=== PATIENT | female | born 1945 | race Caucasian/White ===

== ENCOUNTER 2021-04-18 16:48 | Emergency (ER) | payer MEDICARE ==
[2021-04-18] MEDS ORDERED: Ketorolac Tromethamine 30 MG/ML VIAL ONE (17:24)
[2021-04-18 17:49] LABS: Bilirubin Negative (Negative); Blood, Urine Negative (Negative); Glucose, Urine (Dipstick) Negative (Negative); Ketone, Urine Negative (Negative); Leukocyte Trace (Negative); Nitrite Negative (Negative); Protein, Urine (Dipstick) Negative (Neg-Trace); Specific Gravity, Urine 1.025 (1.005-1.030); Urobilinogen 0.2 mg/dL (Less than 2); pH, Urine 5.5 (5.0-9.0)
[2021-04-18 17:50] LABS: Clarity Hazy (Clear)
[2021-04-18 17:56] LABS: Bacteria/HPF Rare-Few HPF (None Seen); Mucous/LPF 2+ LPF (<2+); RBC/HPF None Seen HPF (0-3); WBC/HPF 21-50 HPF (0-3)
== END 2021-04-18 18:05 | disposition home or self-care (01) ==
LOC: MADERS 16:48
DX: S33.5XXA Sprain of ligaments of lumbar spine, initial encounter (principal); K21.9 Gastro-esophageal reflux disease without esophagitis; I25.10 Atherosclerotic heart disease of native coronary artery without angina pectoris; I10 Essential (primary) hypertension; F17.210 Nicotine dependence, cigarettes, uncomplicated; X50.9XXA Other and unspecified overexertion or strenuous movements or postures, initial encounter
CPT/HCPCS: 74176; 81003; 81015; 96372; J1885

== ENCOUNTER 2021-05-03 14:54 | Inpatient (IN) | payer MEDICARE ==
[~2021-05-03 14:54] MED LIST: Estradiol [Estrace 0.01% Vaginal Cream] 42.5 GM Tube VAG SCH
[2021-05-03 16:04] LABS: #Basophils 0.1 thou/uL (0.0-0.2); #Lymphocytes 2.5 thou/uL (1.20-3.40); #Monocytes 1.8 thou/uL (0.11-0.59); #Neutrophils 10.5 thou/uL (1.40-6.50); %Basophils 0.5 % (0.0-1.0); %Eosinophils 0.3 % (0.0-10.0); %Lymphocytes 16.9 % (21.0-51.0); %Monocytes 12.1 % (0.0-10.0); %Neutrophils 70.2 % (42.0-75.0); Mean Corpuscular HGB CONC 32.1 g/dL (32.0-36.0); Mean Corpuscular Hemoglobin 30.5 pg (27.0-31.0); Mean Corpuscular Volume 95.1 fL (78.0-98.0); Platelet Count 319 thou/uL (130-400); RBC Distribution Width 12.8 % (11.5-14.5); Red Blood Cell (RBC) Count 4.25 mill/uL (4.20-5.40); White Blood Cell (WBC) Count 14.9 thou/uL (4.8-10.8)
[2021-05-03] MEDS ORDERED: Azithromycin 250 MG TAB ONE (16:13)
[2021-05-03] MEDS ORDERED: cefTRIAXone\\ROCEPHIN 2 GM VIAL ONE (16:17)
[2021-05-03] MEDS ORDERED: Aspirin Chewable 81 MG TAB ONE (16:17)
[2021-05-03] MEDS ORDERED: Sodium Chloride 0.9% 100 ML ONE (16:17)
[2021-05-03] MEDS ORDERED: Sodium Chloride 0.9% 2,000 ML ONE (16:17)
[2021-05-03 16:22] LABS: ALT (SGPT) 34 U/L (8-55); AST (SGOT) 25 U/L (5-34); Albumin 3.9 g/dL (3.4-4.8); Alkaline Phosphatase 80 U/L (40-110); Anion Gap 14 mmol/L (10-20); BUN (Urea Nitrogen) 15 mg/dL (9.8-20.1); Bilirubin, Total 1.8 mg/dL (0.2-1.2); Calc. Creatinine Clearance 0 mL/min (70-130); Calcium 9.3 mg/dL (7.8-10.44); Carbon Dioxide 26 mmol/L (23-31); Chloride 103 mmol/L (98-107); Globulin 3.7 g/dL (2.4-3.5); Glucose 138 mg/dL (83-110); Potassium 3.4 mmol/L (3.5-5.1); Protein, Total 7.6 g/dL (5.8-8.1); Sodium 140 mmol/L (136-145)
[2021-05-03] MEDS ORDERED: Morphine 4 MG/ML VIAL ONE (16:57)
[2021-05-03 16:59] LABS: Bilirubin Negative (Negative); Blood, Urine Trace (Negative); Glucose, Urine (Dipstick) Negative (Negative); Ketone, Urine Trace mg/dL (Negative); Leukocyte Moderate (Negative); Nitrite Negative (Negative); Protein, Urine (Dipstick) 100 mg/dL (Neg-Trace); Specific Gravity, Urine 1.015 (1.005-1.030)
[2021-05-03 17:04] LABS: Clarity Cloudy (Clear); pH, Urine Greater/Equal 9.0 (5.0-9.0)
[2021-05-03 17:05] LABS: RBC/HPF 0-3 HPF (0-3); WBC/HPF Greater Than 50 HPF (0-3)
[2021-05-03 17:06] LABS: Bacteria/HPF 3+ HPF (None Seen); Mucous/LPF 2+ LPF (<2+)
[2021-05-03 18:16] LABS: SARS-CoV-2 NAA Rapid Test Not Detected (NotDetected)
[2021-05-03 19:49] VITALS: BMI 26.2
[2021-05-03] MEDS ORDERED: Ondansetron ODT 4 MG TAB PO PRN (21:56)
[2021-05-03] MEDS ORDERED: Non-Formulary Item 1 EACH (Ventolin Hfa Inhaler [Ventolin Hfa Inhaler] 60 PUFF Aer) INH PRN (21:58)
[2021-05-03] MEDS ORDERED: ESTRADIOL VAG SCH (22:00)
[2021-05-03] MEDS ORDERED: Atorvastatin Calcium 10 MG TAB PO SCH (22:45)
[2021-05-03] MEDS ORDERED: Ezetimibe 10 MG TAB PO SCH (22:45)
[2021-05-03] MEDS: Acetaminophen 325 MG TAB PO PRN (22:49)
[2021-05-03] MEDS: Melatonin 3 MG TAB PO PRN (23:07)
[2021-05-04 05:10] LABS: #Basophils 0.1 thou/uL (0.0-0.2); #Eosinphils 0.1 thou/uL (0.0-0.7); #Lymphocytes 1.9 thou/uL (1.20-3.40); #Monocytes 1.3 thou/uL (0.11-0.59); #Neutrophils 7.5 thou/uL (1.40-6.50); %Basophils 0.9 % (0.0-1.0); %Eosinophils 1.1 % (0.0-10.0); %Lymphocytes 17.7 % (21.0-51.0); %Monocytes 12.1 % (0.0-10.0); %Neutrophils 68.1 % (42.0-75.0); Hemoglobin 11.4 g/dL (12.0-16.0); Mean Corpuscular HGB CONC 32.2 g/dL (32.0-36.0); Mean Corpuscular Hemoglobin 30.4 pg (27.0-31.0); Mean Corpuscular Volume 94.2 fL (78.0-98.0); Mean Platelet Volume 6.2 fL (7.4-10.4); Platelet Count 256 thou/uL (130-400); RBC Distribution Width 12.5 % (11.5-14.5); Red Blood Cell (RBC) Count 3.76 mill/uL (4.20-5.40); White Blood Cell (WBC) Count 10.9 thou/uL (4.8-10.8)
[2021-05-04 05:25] LABS: Anion Gap 14 mmol/L (10-20); BUN (Urea Nitrogen) 10 mg/dL (9.8-20.1); Calc. Creatinine Clearance 88 mL/min (70-130); Calcium 8.3 mg/dL (7.8-10.44); Carbon Dioxide 21 mmol/L (23-31); Chloride 108 mmol/L (98-107); Glucose 100 mg/dL (83-110); Sodium 140 mmol/L (136-145)
[2021-05-04 05:33] LABS: Potassium 2.9 mmol/L (3.5-5.1)
[2021-05-04] MEDS ORDERED: Potassium Chloride 20 MEQ TAB PO SCH (06:15)
[2021-05-04] MEDS ORDERED: Non-Formulary Item 1 EACH (Cholecalciferol (Vitamin D3) [Vitamin D3] 1,000 UNIT Capsule) PO SCH (09:00)
[2021-05-04] MEDS: Amlodipine 5 MG TAB PO SCH (09:32)
[2021-05-04] MEDS: Ascorbic Acid 500 mg Chewable Tablet PO SCH (09:33)
[2021-05-04] MEDS: Cholecalciferol 1,000 UNITS (25 MCG) TAB PO SCH (09:33)
[2021-05-04] MEDS: Azithromycin 250 MG TAB PO SCH (09:33)
[2021-05-04] MEDS: Aspirin 81 mg Enteric Coated Tablet PO SCH (09:33)
[2021-05-04] MEDS: Albuterol 200 PUFF (6.7GM INHALER) INH PRN (10:18)
[2021-05-04] MEDS ORDERED: Saccharomyces boulardii 250 MG CAP PO SCH (13:00)
[2021-05-04] MEDS ORDERED: cefTRIAXone\\ROCEPHIN 2 GM in Sodium Chloride 0.9% 100 ML IVPB SCH (16:00)
[2021-05-04] MEDS ORDERED: ATORVASTATIN CALCIUM 20 MG PO SCH (21:00)
[2021-05-04] MEDS ORDERED: Atorvastatin Calcium 10 MG TAB PO SCH (21:00)
[2021-05-04] MEDS ORDERED: Ezetimibe 10 MG TAB PO SCH (21:00)
[2021-05-04] MEDS: Melatonin 3 MG TAB PO PRN (21:35)
[2021-05-04] MEDS: Acetaminophen 325 MG TAB PO PRN (21:35)
[2021-05-05] MEDS: Albuterol 200 PUFF (6.7GM INHALER) INH PRN (04:25)
[2021-05-05] MEDS: Cholecalciferol 1,000 UNITS (25 MCG) TAB PO SCH (08:55)
[2021-05-05] MEDS: Azithromycin 250 MG TAB PO SCH (08:55)
[2021-05-05] MEDS: Amlodipine 5 MG TAB PO SCH (08:55)
[2021-05-05] MEDS: Ascorbic Acid 500 mg Chewable Tablet PO SCH (08:55)
[2021-05-05] MEDS: Aspirin 81 mg Enteric Coated Tablet PO SCH (08:56)
[2021-05-05] MEDS ORDERED: Saccharomyces boulardii 250 MG CAP PO SCH (09:00)
[2021-05-05 09:15] LABS: #Eosinphils 0.2 thou/uL (0.0-0.7); #Lymphocytes 1.7 thou/uL (1.20-3.40); #Monocytes 0.9 thou/uL (0.11-0.59); %Basophils 0.6 % (0.0-1.0); %Eosinophils 2.1 % (0.0-10.0); %Monocytes 10.2 % (0.0-10.0); %Neutrophils 68.2 % (42.0-75.0); Hemoglobin 12.5 g/dL (12.0-16.0); Mean Corpuscular HGB CONC 32.7 g/dL (32.0-36.0); Mean Corpuscular Hemoglobin 30.8 pg (27.0-31.0); Mean Corpuscular Volume 94.1 fL (78.0-98.0); Mean Platelet Volume 5.9 fL (7.4-10.4); Platelet Count 302 thou/uL (130-400); RBC Distribution Width 12.7 % (11.5-14.5); Red Blood Cell (RBC) Count 4.04 mill/uL (4.20-5.40); White Blood Cell (WBC) Count 8.8 thou/uL (4.8-10.8)
[2021-05-05 09:29] LABS: Anion Gap 14 mmol/L (10-20); BUN (Urea Nitrogen) 10 mg/dL (9.8-20.1); Calc. Creatinine Clearance 83 mL/min (70-130); Calcium 8.9 mg/dL (7.8-10.44); Carbon Dioxide 24 mmol/L (23-31); Chloride 107 mmol/L (98-107); Glucose 139 mg/dL (83-110); Potassium 3.5 mmol/L (3.5-5.1); Sodium 141 mmol/L (136-145)
[2021-05-05] MEDS ORDERED: cefTRIAXone\\ROCEPHIN 2 GM in Sodium Chloride 0.9% 100 ML IVPB SCH (10:00)
[2021-05-05 11:42] VITALS: BP 127/64; TEMP 98
[2021-05-06] MEDS ORDERED: Cephalexin 500 MG CAP PO SCH (09:00)
[2021-05-08] MEDS ORDERED: Estradiol [Estrace 0.01% Vaginal Cream] 42.5 GM Tube VAG SCH (09:00)
== END 2021-05-05 11:54 | disposition home health service (06) | DRG 689 ==
LOC: MADERS 14:54 → MADMS 18:30
PROVIDERS: ADMIT Family Medicine; ATTEND Family Medicine
DX: N30.00 Acute cystitis without hematuria (principal); J18.9 Pneumonia, unspecified organism; Z20.822 Contact with and (suspected) exposure to COVID-19; I10 Essential (primary) hypertension; E78.5 Hyperlipidemia, unspecified; K21.9 Gastro-esophageal reflux disease without esophagitis; I25.10 Atherosclerotic heart disease of native coronary artery without angina pectoris; E87.6 Hypokalemia; Z85.51 Personal history of malignant neoplasm of bladder; Z95.5 Presence of coronary angioplasty implant and graft; Z86.718 Personal history of other venous thrombosis and embolism; Z86.16 Personal history of COVID-19; Z88.5 Allergy status to narcotic agent; Z88.1 Allergy status to other antibiotic agents; Z88.8 Allergy status to other drugs, medicaments and biological substances; Z79.82 Long term (current) use of aspirin; Z79.899 Other long term (current) drug therapy; Z98.890 Other specified postprocedural states; Z90.710 Acquired absence of both cervix and uterus; Z87.891 Personal history of nicotine dependence
CPT/HCPCS: 36415; 71046; 80048; 80053; 81003; 81015; 83605; 83880; 84484; 85025; 87040; 87077; 87086; 87186; 93005; 96365; J0696; J2270; J3490; J7050; U0002

== ENCOUNTER 2024-05-18 17:26 | Emergency (ER) | payer MEDICARE ==
[2024-05-18] MEDS ORDERED: valACYclovir 500 MG TAB ONE (17:59)
== END 2024-05-18 18:12 | disposition home or self-care (01) ==
LOC: MADERS 17:26
DX: B02.9 Zoster without complications (principal); I10 Essential (primary) hypertension; F17.210 Nicotine dependence, cigarettes, uncomplicated; Z95.5 Presence of coronary angioplasty implant and graft
CPT/HCPCS: 99283

== ENCOUNTER 2025-05-29 11:02 | Emergency (ER) | payer MEDICARE ==
[2025-05-29 11:49] LABS: #Basophils 0.1 thou/uL (0.0-0.2); #Eosinophils 0.1 thou/uL (0.0-0.7); #Lymphocytes 1.2 thou/uL (1.20-3.40); #Monocytes 1.0 thou/uL (0.11-0.59); #Neutrophils 8.7 thou/uL (1.40-6.50); %Basophils 0.8 % (0.0-1.0); %Eosinophils 0.5 % (0.0-10.0); %Lymphocytes 10.5 % (21.0-51.0); %Monocytes 8.9 % (0.0-10.0); %Neutrophils 79.3 % (42.0-75.0); Hematocrit 44.5 % (36.0-47.0); Hemoglobin 14.1 g/dL (12.0-16.0); Mean Corpuscular Hemoglobin 30.6 pg (27.0-31.0); Mean Corpuscular Volume 97.1 fl (78.0-98.0); Platelet Count 239 10x3/uL (130-400); Red Blood Cell (RBC) Count 4.59 mill/uL (4.20-5.40); White Blood Cell (WBC) Count 10.9 10x3/uL (4.8-10.8)
[2025-05-29] MEDS ORDERED: Acetaminophen 325 MG TAB ONE (11:49)
[2025-05-29] MEDS ORDERED: Aspirin Chewable 81 MG TAB ONE (11:50)
[2025-05-29 11:53] LABS: Specific Gravity, Urine 1.020 (1.005-1.030)
[2025-05-29 11:54] LABS: Glucose, Urine (Dipstick) Negative (Negative); Leukocyte Large (Negative); Protein, Urine (Dipstick) 30 mg/dL (Neg-Trace)
[2025-05-29 12:01] LABS: Bacteria/HPF 4+ HPF (None Seen); CAUTI Indications for Culture Dysuria,urgency,freq; RBC/HPF 0-3 HPF (0-3); WBC/HPF Greater Than 50 HPF (0-3)
[2025-05-29 12:02] LABS: Urine Culture Reflex Yes Yes
[2025-05-29 12:08] LABS: ALT (SGPT) 22 U/L (Less than 34); AST (SGOT) 28 U/L (11-34); Albumin 4.2 g/dL (3.1-4.5); Alkaline Phosphatase 54 U/L (40-110); Anion Gap 16 mmol/L (10-20); BUN (Urea Nitrogen) 20 mg/dL (9.8-20.1); Bilirubin, Total 2.0 mg/dL (0.3-1.2); Calc. Creatinine Clearance 0 mL/min (70-130); Calcium 9.2 mg/dL (7.8-10.44); Carbon Dioxide 25 mmol/L (23-31); Chloride 105 mmol/L (98-107); Globulin 3.3 g/dL (2.4-3.5); Glucose 164 mg/dL (83-110); Lipase 13 U/L (8-78); Potassium 3.2 mmol/L (3.5-5.1); Sodium 143 mmol/L (136-145); Troponin I Less than 0.010 ng/mL (< 0.028)
[2025-05-29] MEDS ORDERED: cefTRIAXone (ROCEPHIN) 1 GM VIAL ONE (12:20)
== END 2025-05-29 13:09 | disposition home or self-care (01) ==
LOC: MADERS 11:02
DX: N39.0 Urinary tract infection, site not specified (principal); I20.89 Other forms of angina pectoris; M54.42 Lumbago with sciatica, left side; J98.11 Atelectasis; E87.6 Hypokalemia; E80.6 Other disorders of bilirubin metabolism; I10 Essential (primary) hypertension; K21.9 Gastro-esophageal reflux disease without esophagitis; F17.210 Nicotine dependence, cigarettes, uncomplicated; Z79.84 Long term (current) use of oral hypoglycemic drugs; Z79.899 Other long term (current) drug therapy; Z79.82 Long term (current) use of aspirin; Z85.51 Personal history of malignant neoplasm of bladder; Z95.5 Presence of coronary angioplasty implant and graft
CPT/HCPCS: 71046; 80053; 81001; 83690; 84484; 85025; 87077; 87086; 87186; 93005; 94760; 96365; J0696